=== PATIENT | male | born 1955 | race Caucasian/White ===

== ENCOUNTER → 2017-08-25 | Outpatient (CLI) | payer OTHER ==
[~2017-08-25] MED LIST: ACETAMINOPHEN-1 EAC1 PO; CLEOCIN HCL150 MG PO; HYDROCHLOROTH12.5 M1 PO; PRAVASTATIN SOD20 MG PO; PRINIVIL20 M1 PO; PROTONIX 20 MG20 M1 PO
[2017-08-25 08:48] LABS: MPV 6.7 fl. (7.2-11.1)
[2017-08-25 08:53] LABS: HEMATOCRIT 41.8 % (42.0-52.0); HEMOGLOBIN 14.4 gm/dL (14.0-18.0); MCH 30.9 pg (26.0-34.0); MCHC 34.4 g/dL (28.0-37.0); MCV 89.9 fL (80.0-100.0); NUCLEATED RBCS 0 /100WBC; PLATELET COUNT* 245 thou/uL (150-400); RBC 4.65 mil/uL (4.50-6.00); RDW-CV 12.4 % (10.5-14.5); WBC 7.3 thou/uL (4.0-11.0)
[2017-08-25 09:07] LABS: ALBUMIN 3.8 g/dL (3.4-5.0); CALCIUM 8.9 mg/dL (8.5-10.1); MAGNESIUM 1.9 mg/dL (1.8-2.4); POTASSIUM 4.1 mmol/L (3.5-5.1); TOTAL BILIRUBIN 0.4 mg/dL (<0.1-1.0); TOTAL PROTEIN 7.2 g/dL (6.4-8.2)
[2017-08-25 09:14] LABS: ABSOLUTE EOSINOPHILS 0.1 thou/uL (0.0-0.7); ABSOLUTE LYMPHOCYTES 2.1 thou/uL (0.8-5.3); ABSOLUTE MONOCYTES 0.5 thou/uL (0.0-1.2); ABSOLUTE NEUTROPHILS 4.5 thou/uL (1.6-8.1); METAMYELOCYTES 1 %
[2017-08-25 16:12] LABS: LDL (DIRECT) CHOL 77 mg/dL (0-99)
== END ==
LOC: M.LAB 08:23
PROVIDERS: Internal Medicine
DX: M17.11 Unilateral primary osteoarthritis, right knee (principal); M16.0 Bilateral primary osteoarthritis of hip; J43.9 Emphysema, unspecified; K76.0 Fatty (change of) liver, not elsewhere classified; I10 Essential (primary) hypertension; E78.5 Hyperlipidemia, unspecified; K21.9 Gastro-esophageal reflux disease without esophagitis; R94.6 Abnormal results of thyroid function studies; R91.1 Solitary pulmonary nodule; M54.5 Low back pain; G89.29 Other chronic pain

== ENCOUNTER → 2017-09-11 | Outpatient (CLI) | payer OTHER ==
[2017-09-11 17:14] LABS: GLYCOHEMOGLOBIN (HGB A1C) 5.5 % (4.8-5.6)
== END ==
LOC: M.LAB 08:59
PROVIDERS: Internal Medicine
DX: R73.09 Other abnormal glucose (principal)